=== PATIENT | female | born 1985 | race African-American/Black ===

== ENCOUNTER 2019-02-10 21:38 | Inpatient (IN) | payer OTHER ==
[~2019-02-10 21:38] MED LIST: ISOVUE-370 76%-LOCM 1 ML ONE
[2019-02-10] MEDS ORDERED: Midazolam HCl 2 mg/2 ml Vial ONE (21:47)
[2019-02-10] MEDS ORDERED: Fentanyl 100 MCG/2 ML VIAL ONE (21:47)
[2019-02-10 21:55] LABS: Bilirubin Negative (Negative); Blood, Urine 1+ (Negative); Clarity Clear (Clear); Glucose, Urine (Dipstick) Normal (Negative); Leukocyte Negative Leu/uL (Negative); Mucous/LPF Rare LPF (<2+); Nitrite Negative (Negative); Protein, Urine (Dipstick) 30 mg/dL (Neg-Trace); RBC/HPF 0-3 HPF (0-3); Squamous Epithelial None Seen HPF (0-3); Urobilinogen Normal mg/dL (Less than 2)
[2019-02-10 21:59] LABS: Bacteria/HPF None Seen HPF (None Seen)
[2019-02-10 22:00] LABS: #Basophils 0.1 thou/uL (0.0-0.2); #Eosinphils 0.2 thou/uL (0.0-0.7); #Lymphocytes 3.2 thou/uL (1.20-3.40); #Monocytes 0.7 thou/uL (0.11-0.59); #Neutrophils 9.5 thou/uL (1.40-6.50); %Basophils 0.9 % (0.0-1.0); %Eosinophils 1.7 % (0.0-10.0); %Lymphocytes 23.3 % (21.0-51.0); %Monocytes 4.8 % (0.0-10.0); %Neutrophils 69.4 % (42.0-75.0); Hemoglobin 14.7 g/dL (12.0-16.0); Mean Corpuscular HGB CONC 33.7 g/dL (32.0-36.0); Mean Corpuscular Hemoglobin 31.8 pg (27.0-31.0); Mean Corpuscular Volume 94.5 fL (78.0-98.0); Mean Platelet Volume 7.7 fL (7.4-10.4); Platelet Count 248 thou/uL (130-400); RBC Distribution Width 12.1 % (11.5-14.5); Red Blood Cell (RBC) Count 4.63 mill/uL (4.20-5.40); White Blood Cell (WBC) Count 13.7 thou/uL (4.8-10.8)
[2019-02-10 22:06] LABS: BHCG - Serum Negative (NEGATIVE); Pregs Control Background? CLEAR/WHITE (CLR/WHITE); Pregs Control Bar Appear? YES (CONTROL BAR)
[2019-02-10 22:15] LABS: ALT (SGPT) 51 U/L (8-55); AST (SGOT) 82 U/L (5-34); Albumin 3.7 g/dL (3.5-5.0); Alkaline Phosphatase 53 U/L (40-110); Anion Gap 14 mmol/L (10-20); BUN (Urea Nitrogen) 15 mg/dL (7.0-18.7); Bilirubin, Total 0.2 mg/dL (0.2-1.2); Calc. Creatinine Clearance 0 mL/min (70-130); Calcium 7.7 mg/dL (7.8-10.44); Carbon Dioxide 18 mmol/L (22-29); Chloride 107 mmol/L (98-107); Estimated GFR-MDRD Greater than 90; Globulin 2.4 g/dL (2.4-3.5); Glucose 144 mg/dL (70-105); Lipase 31 U/L (8-78); Protein, Total 6.1 g/dL (6.0-8.3); Sodium 136 mmol/L (136-145)
[2019-02-10 22:17] LABS: Actual Bicarbonate (HCO3a) 16.3 mEq/L (22-28); Analyzer IN Cardio ER; Base Excess (BEa) -8.3 mEq/L (-2.0 to +3.0); CO2 Tension 31.4 mmHg (35.0-45.0); Carboxyhemoglobin (COHb) 4.3 gm% (0.0-3.0); Hemoglobin (Hb) 13.8 g/dL (12.0-16.0); Potassium - ABG Lab 2.65 mmol/L (3.70-5.30); pH, Arterial 7.33 (7.35-7.45)
[2019-02-10 22:19] LABS: Puncture Site RBA
[2019-02-10 22:21] LABS: Potassium 2.8 mmol/L (3.5-5.1)
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
[2019-02-10] MEDS ORDERED: Calcium Chloride 1 GM/10 ML Abboject SYRINGE ONE (22:33)
[2019-02-10 22:36] LABS: Acetaminophen Less than 6.0 mcg/mL (10.0-30.0); Alcohol 245 mg/dL (Less than 10); Salicylate Less than 8.0 mg/dL (15.0-30.0)
[2019-02-10] MEDS ORDERED: Propofol 1,000 MG/100 ML VIAL IV ONE (22:37)
[2019-02-10 22:41] LABS: INR-International Normal Ratio 1.2; Prothrombin Time 14.9 SEC (12.0-14.7)
[2019-02-10 22:44] LABS: Amphetamine Not Detected (NotDetected); Barbiturates Screen Not Detected (NotDetected); Benzodiazepine Screen Not Detected (NotDetected); Cocaine Metabolite Screen Detected (NotDetected); Medtox Control Line Valid? VALID (VALID); Medtox Reader # READER 1; Methadone Not Detected (NotDetected); Methamphetamine Not Detected (NotDetected); Opiate Screen Not Detected (NotDetected); Oxycodone Screen Not Detected (NotDetected); Phencyclidine (PCP) Not Detected (NotDetected); THC/Cannabinoid Screen Not Detected (NotDetected); Tricyclic Screen Not Detected (NotDetected)
[2019-02-10] MEDS ORDERED: Potassium Chloride 40 MEQ in Sodium Chloride 0.9% 250 ML 250 ML IVPB SCH (23:00)
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
[2019-02-10] MEDS ORDERED: Ondansetron PF 4 MG/2 ML Vial IVP PRN (23:44)
[2019-02-10] MEDS ORDERED: Dextrose 50% Abboject 50 ML SYRINGE SLOW IVP PRN (23:44)
[2019-02-10] MEDS ORDERED: Propofol 500 MG/50 ML VIAL IV PRN (23:44)
[2019-02-10] MEDS ORDERED: Dextrose 5% in Water 1,000 ML IV PRN (23:44)
[2019-02-10] MEDS ORDERED: Ondansetron ODT 4 MG TAB PO PRN (23:44)
[2019-02-10] MEDS ORDERED: hydrALAZINE 20 MG/ML VIAL SLOW IVP PRN (23:44)
[2019-02-10 23:51] VITALS: BMI 24.4
[2019-02-11] MEDS: Sodium Chloride 0.9% 1,000 ML IV SCH ×3 (00:06→22:27)
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
[2019-02-11 01:57] LABS: Lactic Acid 4.8 mmol/L (0.5-2.2)
[2019-02-11] MEDS ORDERED: Sodium Chloride 0.9% 500 ML IV SCH (03:00)
[2019-02-11 04:26] LABS: #Monocytes 0.7 thou/uL (0.11-0.59); #Neutrophils 13.3 thou/uL (1.40-6.50); %Basophils 0.1 % (0.0-1.0); %Lymphocytes 6.6 % (21.0-51.0); %Monocytes 4.5 % (0.0-10.0); %Neutrophils 88.9 % (42.0-75.0); Hemoglobin 13.7 g/dL (12.0-16.0); Mean Corpuscular HGB CONC 33.5 g/dL (32.0-36.0); Mean Corpuscular Hemoglobin 31.6 pg (27.0-31.0); Mean Corpuscular Volume 94.3 fL (78.0-98.0); Mean Platelet Volume 8.1 fL (7.4-10.4); Platelet Count 210 thou/uL (130-400); RBC Distribution Width 12.1 % (11.5-14.5); Red Blood Cell (RBC) Count 4.33 mill/uL (4.20-5.40)
[2019-02-11 04:40] LABS: Anion Gap 14 mmol/L (10-20); BUN (Urea Nitrogen) 11 mg/dL (7.0-18.7); CK (CPK) 2580 U/L (29-168); Calc. Creatinine Clearance 99 mL/min (70-130); Calcium 8.2 mg/dL (7.8-10.44); Carbon Dioxide 21 mmol/L (22-29); Chloride 109 mmol/L (98-107); Estimated GFR-MDRD Greater than 90; Glucose 120 mg/dL (70-105); Potassium 3.3 mmol/L (3.5-5.1); Sodium 141 mmol/L (136-145)
[2019-02-11 06:35] LABS: Actual Bicarbonate (HCO3a) 19.3 mEq/L (22-28); Base Excess (BEa) -4.8 mEq/L (-2.0 to +3.0); CO2 Tension 33.3 mmHg (35.0-45.0); Calcium, Ionized 1.15 mmol/L (1.12-1.30); Carboxyhemoglobin (COHb) 1.1 gm% (0.0-3.0); Hemoglobin (Hb) 13.7 g/dL (12.0-16.0); O2 Tension (PaO2) 83.5 mmHg (80.0-100.0); Potassium - ABG Lab 3.11 mmol/L (3.70-5.30); pH, Arterial 7.38 (7.35-7.45)
[2019-02-11 06:37] LABS: Puncture Site RRA
[2019-02-11 06:38] LABS: ALV-art Gradient 124.425 (0-20)
[2019-02-11 06:51] LABS: Phosphorus 2.2 mg/dL (2.3-4.7)
--- NOTE | 2019-02-11 07:50 | RAD ---
Chest one view HISTORY: Dyspnea. Pneumothorax. COMPARISON: 02/10/2019. FINDINGS: Cardiac silhouette and pulmonary vasculature are unremarkable. Mediastinum is midline. Endo tracheal catheter in good radiographic position. Nasogastric tube in place. Proximal sidehole near the level of the GE junction. Right rib fractures not well demonstrated on this exam. No evidence of pneumothorax. IMPRESSION: Nasogastric tube should probably be advanced approximately 10 cm for better positioning. No abnormalities otherwise demonstrated.
[2019-02-11] MEDS ORDERED: Potassium Chloride 20 MEQ in Premix Bag 1 BAG IVPB SCH (08:15)
[2019-02-11] MEDS: Famotidine/PF 20 mg/2ml Vial SLOW IVP SCH ×2 (08:24→19:33)
[2019-02-11 08:26] LABS: Lactic Acid 3.2 mmol/L (0.5-2.2)
[2019-02-11] MEDS ORDERED: FLU VACC QS2019-20(6MOS UP)/PF 60 MCG/0.5 ML SYRINGE IM ONE (09:00)
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
[2019-02-11] MEDS ORDERED: traMADol HCl 50 MG TAB PO PRN ×2 (15:35→15:43)
[2019-02-11] MEDS ORDERED: Morphine 4 MG/ML VIAL ONE (15:41)
[2019-02-11] MEDS ORDERED: Morphine 4 MG/ML VIAL SLOW IVP SCH (15:45)
[2019-02-11] MEDS: Nicotine 14 MG PATCH TD SCH (16:05)
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
[2019-02-11] MEDS ORDERED: traMADol HCl 50 MG TAB PO SCH (18:00)
[2019-02-11] MEDS: traMADol HCl 50 MG TAB PO SCH ×2 (18:31→23:45)
[2019-02-11] MEDS: Acetaminophen 500 MG TAB PO SCH ×2 (18:35→23:45)
[2019-02-11] MEDS: Cyclobenzaprine 10 MG TAB PO PRN (19:33)
[2019-02-11] MEDS: Senokot S 8.6-50 MG TAB PO SCH (19:33)
[2019-02-11] MEDS: Gabapentin 300 MG CAP PO SCH (19:33)
[2019-02-11] MEDS ORDERED: Sodium Chloride 0.9% 1,000 ML IV SCH (21:15)
[2019-02-12] MEDS: Acetaminophen 500 MG TAB PO SCH ×4 (05:52→22:58)
[2019-02-12] MEDS: traMADol HCl 50 MG TAB PO SCH ×4 (05:52→22:58)
[2019-02-12 06:31] LABS: Phosphorus 2.5 mg/dL (2.3-4.7)
[2019-02-12 06:35] LABS: Anion Gap 10 mmol/L (10-20); BUN (Urea Nitrogen) 10 mg/dL (7.0-18.7); CK (CPK) 3073 U/L (29-168); Calc. Creatinine Clearance 116 mL/min (70-130); Calcium 7.8 mg/dL (7.8-10.44); Carbon Dioxide 24 mmol/L (22-29); Chloride 109 mmol/L (98-107); Estimated GFR-MDRD Greater than 90; Glucose 88 mg/dL (70-105); Magnesium 2.1 mg/dL (1.6-2.6); Potassium 3.6 mmol/L (3.5-5.1); Sodium 139 mmol/L (136-145)
[2019-02-12] MEDS: Sodium Chloride 0.9% 1,000 ML IV SCH ×3 (08:46→23:01)
[2019-02-12] MEDS: Cyclobenzaprine 10 MG TAB PO PRN (08:49)
[2019-02-12] MEDS: Senokot S 8.6-50 MG TAB PO SCH ×2 (08:49→19:44)
[2019-02-12] MEDS: Gabapentin 300 MG CAP PO SCH ×2 (08:49→19:44)
[2019-02-12] MEDS: Enoxaparin Sodium 40 MG/0.4 ML SYRINGE SC SCH (08:50)
[2019-02-12] MEDS: Polyethylene Glycol 3350 17 GM Packet PO SCH (08:50)
[2019-02-12] MEDS: Famotidine 20 MG TAB PO SCH ×2 (08:50→19:44)
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
[2019-02-12] MEDS: Ibuprofen 600 MG TAB PO SCH ×2 (15:40→22:58)
[2019-02-12] MEDS: Nicotine 14 MG PATCH TD SCH (17:59)
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
[2019-02-13] MEDS: Ibuprofen 600 MG TAB PO SCH ×3 (05:22→20:56)
[2019-02-13] MEDS: Acetaminophen 500 MG TAB PO SCH ×4 (05:22→23:15)
[2019-02-13] MEDS: traMADol HCl 50 MG TAB PO SCH ×4 (05:22→23:16)
[2019-02-13 05:47] LABS: Anion Gap 9 mmol/L (10-20); BUN (Urea Nitrogen) 14 mg/dL (7.0-18.7); CK (CPK) 2413 U/L (29-168); Calc. Creatinine Clearance 123 mL/min (70-130); Calcium 7.5 mg/dL (7.8-10.44); Carbon Dioxide 21 mmol/L (22-29); Chloride 113 mmol/L (98-107); Estimated GFR-MDRD Greater than 90; Glucose 62 mg/dL (70-105); Magnesium 2.2 mg/dL (1.6-2.6); Phosphorus 2.2 mg/dL (2.3-4.7); Potassium 3.4 mmol/L (3.5-5.1); Sodium 140 mmol/L (136-145)
[2019-02-13] MEDS ORDERED: Potassium Phosphate 30 MMOL in Sodium Chloride 0.9% 250 ML 250 ML IVPB SCH (08:30)
[2019-02-13] MEDS: Cyclobenzaprine 10 MG TAB PO PRN (08:57)
[2019-02-13] MEDS: Gabapentin 300 MG CAP PO SCH ×2 (08:57→20:56)
[2019-02-13] MEDS: Polyethylene Glycol 3350 17 GM Packet PO SCH (08:58)
[2019-02-13] MEDS: Folic Acid 1 MG TAB PO SCH (08:58)
[2019-02-13] MEDS: Senokot S 8.6-50 MG TAB PO SCH ×2 (08:58→20:56)
[2019-02-13] MEDS: Enoxaparin Sodium 40 MG/0.4 ML SYRINGE SC SCH (08:58)
[2019-02-13] MEDS: Famotidine 20 MG TAB PO SCH ×2 (08:58→20:56)
[2019-02-13] MEDS: Thiamine 100 MG TAB PO SCH (08:58)
[2019-02-13] MEDS: Sodium Chloride 0.9% 1,000 ML IV SCH (09:12)
--- NOTE | 2019-02-13 09:52 | RAD ---
CERVICAL SPINE 3 VIEWS: HISTORY: Followup odontoid fracture. COMPARISON: Correlation is made to CT 02/10/2019 which reviewed a type II odontoid fracture through the base of th e odontoid. The odontoid fracture is not well delineated on these plain films. The atlantoaxial space is normal. There may be slight posterior angulation of the tip of the odontoid on the lateral view. Vertebral bodies otherwise maintain normal height. Mild degenerative changes are noted at C5-6 with anterior spurring. Posterior elements appear normally aligned. IMPRESSION: Odontoid fracture through the base of the odontoid seen on CT of 02/10/2019 is not delineated on plain film. Open mouth odontoid view is suboptimal and does not really demonstrate this fracture. Minima l posterior angulation of the odontoid on the lateral view of uncertain significance. POS: [facility]
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
[2019-02-13] MEDS: Oxazepam 10 MG CAP PO SCH ×2 (13:27→20:56)
[2019-02-13] MEDS: Nicotine 14 MG PATCH TD SCH (15:23)
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
[2019-02-14 04:59] LABS: #Eosinphils 0.4 thou/uL (0.0-0.7); #Lymphocytes 1.8 thou/uL (1.20-3.40); #Monocytes 0.4 thou/uL (0.11-0.59); #Neutrophils 3.2 thou/uL (1.40-6.50); %Basophils 0.8 % (0.0-1.0); %Monocytes 6.7 % (0.0-10.0); %Neutrophils 55.5 % (42.0-75.0); Mean Corpuscular Hemoglobin 32.1 pg (27.0-31.0); Mean Platelet Volume 8.3 fL (7.4-10.4); Platelet Count 185 thou/uL (130-400); Red Blood Cell (RBC) Count 3.13 mill/uL (4.20-5.40); White Blood Cell (WBC) Count 5.9 thou/uL (4.8-10.8)
[2019-02-14] MEDS: Acetaminophen 500 MG TAB PO SCH ×4 (05:18→23:16)
[2019-02-14] MEDS: Ibuprofen 600 MG TAB PO SCH ×3 (05:18→23:17)
[2019-02-14] MEDS: Oxazepam 10 MG CAP PO SCH ×3 (05:18→23:17)
[2019-02-14] MEDS: traMADol HCl 50 MG TAB PO SCH ×4 (05:19→23:16)
[2019-02-14 05:20] LABS: Anion Gap 9 mmol/L (10-20); BUN (Urea Nitrogen) 15 mg/dL (7.0-18.7); CK (CPK) 1625 U/L (29-168); Calc. Creatinine Clearance 116 mL/min (70-130); Carbon Dioxide 22 mmol/L (22-29); Chloride 113 mmol/L (98-107); Estimated GFR-MDRD Greater than 90; Glucose 72 mg/dL (70-105); Phosphorus 2.6 mg/dL (2.3-4.7); Potassium 3.9 mmol/L (3.5-5.1); Sodium 140 mmol/L (136-145)
[2019-02-14] MEDS: Senokot S 8.6-50 MG TAB PO SCH ×2 (08:50→20:22)
[2019-02-14] MEDS: Thiamine 100 MG TAB PO SCH (08:50)
[2019-02-14] MEDS: Folic Acid 1 MG TAB PO SCH (08:50)
[2019-02-14] MEDS: Gabapentin 300 MG CAP PO SCH ×2 (08:50→20:22)
[2019-02-14] MEDS: Enoxaparin Sodium 40 MG/0.4 ML SYRINGE SC SCH (08:51)
[2019-02-14] MEDS: Polyethylene Glycol 3350 17 GM Packet PO SCH (08:51)
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
[2019-02-14] MEDS: Nicotine 14 MG PATCH TD SCH (16:12)
[2019-02-14] MEDS: Cyclobenzaprine 10 MG TAB PO PRN (16:15)
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
[2019-02-15 05:35] LABS: Hemoglobin 10.8 g/dL (12.0-16.0); Mean Corpuscular HGB CONC 33.8 g/dL (32.0-36.0); Mean Corpuscular Hemoglobin 32.2 pg (27.0-31.0); Mean Corpuscular Volume 95.2 fL (78.0-98.0); Platelet Count 207 thou/uL (130-400); RBC Distribution Width 11.9 % (11.5-14.5); Red Blood Cell (RBC) Count 3.35 mill/uL (4.20-5.40); White Blood Cell (WBC) Count 5.6 thou/uL (4.8-10.8)
[2019-02-15] MEDS: Acetaminophen 500 MG TAB PO SCH ×3 (05:36→18:15)
[2019-02-15] MEDS: Oxazepam 10 MG CAP PO SCH ×2 (05:36→14:05)
[2019-02-15] MEDS: Ibuprofen 600 MG TAB PO SCH ×2 (05:36→14:04)
[2019-02-15] MEDS: traMADol HCl 50 MG TAB PO SCH ×3 (05:37→18:15)
[2019-02-15] MEDS: Gabapentin 300 MG CAP PO SCH (10:06)
[2019-02-15] MEDS: Senokot S 8.6-50 MG TAB PO SCH (10:06)
[2019-02-15] MEDS: Thiamine 100 MG TAB PO SCH (10:06)
[2019-02-15] MEDS: Folic Acid 1 MG TAB PO SCH (10:06)
[2019-02-15] MEDS: Enoxaparin Sodium 40 MG/0.4 ML SYRINGE SC SCH (10:06)
[2019-02-15] MEDS: Polyethylene Glycol 3350 17 GM Packet PO SCH (10:07)
[2019-02-15] MEDS: Cyclobenzaprine 10 MG TAB PO PRN (10:14)
[2019-02-15 15:41] VITALS: BP 134/88; TEMP 98.4
[2019-02-15] MEDS: Nicotine 14 MG PATCH TD SCH (16:01)
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
== END 2019-02-15 18:56 | DRG 963 ==
LOC: ERS 21:38 → EDBD 21:38 → CCU 23:25 → SURG A 02-12 00:47
PROVIDERS: ADMIT Surgery; ATTEND Surgery
PROC: 5A1935Z Respiratory Ventilation, Less than 24 Consecutive Hours (ICD-10-PCS; principal; 2019-02-10)
DX: S06.0X9A Concussion with loss of consciousness of unspecified duration, initial encounter (principal); J96.00 Acute respiratory failure, unspecified whether with hypoxia or hypercapnia; S27.321A Contusion of lung, unilateral, initial encounter; T79.6XXA Traumatic ischemia of muscle, initial encounter; S22.41XA Multiple fractures of ribs, right side, initial encounter for closed fracture; S12.110A Anterior displaced Type II dens fracture, initial encounter for closed fracture; E87.2 Acidosis; R40.2432 Glasgow coma scale score 3-8, at arrival to emergency department; E87.6 Hypokalemia; E83.51 Hypocalcemia; J45.909 Unspecified asthma, uncomplicated; F17.210 Nicotine dependence, cigarettes, uncomplicated; R13.10 Dysphagia, unspecified; V48.0XXA Car driver injured in noncollision transport accident in nontraffic accident, initial encounter
CPT/HCPCS: 36415; 51702; 70450; 71045; 71260; 72040; 72125; 74177; 80048; 80053; 80306; 80307; 81001; 82550; 82805; 83605; 83690; 83735; 84100; 84703; 85025; 85027; 85610; 85730; 86850; 86900; 86901; 93005; 94002; 94003; 96365; 96368; 96375; G0390; J1650; J2250; J2270; J2405; J2704; J3010; J3480; J7050; Q9966; S0028